=== PATIENT | male | born 1945 | race African-American/Black ===

== ENCOUNTER → 2019-10-14 | Outpatient (CLI) | payer OTHER ==
--- NOTE | 2019-10-14 11:16 | RADIOLOGY REPORT (SQ) ---
EXAM DESCRIPTION: CHRIS SWALLOW COMPLETED DATE/TIME: 10/14/2019 8:38 am REASON FOR STUDY: DYSPHAGIA (R13.10) R13.10 DYSPHAGIA, UNSPECIFIED COMPARISON: None. TECHNIQUE: Videofluoroscopic swallowing examination was performed in conjunction with speech patholo gy. Videofluoroscopic imaging was obtained and reviewed and these are the findings: RADIATION DOSE: Fluoro time 1.58 minutes 2 images saved to PACS. LIMITATIONS: None FINDINGS: The patient was brought into the fluoro room and placed upright on a modified barium swall ow chair. The patient was then given multiple consistencies mixed with barium to swallow under live fluoroscopic video guidance. According to the Speech Pathologist there was no penetration or aspirat ion. Please refer to the speech pathology report for further details. IMPRESSION: NO EVIDENCE OF PENETRATION OR ASPIRATION. PLEASE SEE SPEECH PATHOLOGIST REPORT FOR OTHER FINDINGS AND RECOMMENDATIONS. COMMENT: None Quality ID [id number]: Final reports for procedures using fluoroscopy that document radiation exposure landen rylee, or exposure time and number of fluorographic images (if radiation exposure indices are not avail able) TECHNICAL DOCUMENTATION: JOB ID: [id number] [employer]- All Rights Reserved Reading location - IP/workstation name: [id number]
--- NOTE | 2019-10-14 16:54 | ST Modified Barium Swallow ---
Recommendation - Recommendations Recommendations: Recommend being cautious with dry or crumbly textures. May wish to refer to GI due to nature of symptoms. Patient reported sensation of bolus still being in throat when fluoro indicated no material remained. Medical Diagnoses - Medical Diagnoses Medical Diagnosis Description & ICD-10 Code(s): R13.10 dysphagia Other Medical Diagnoses/Co-Morbidities: per patient report: cervical spine fusion over 5 years ago, dry mouth, "lung problems" ST Modified Barium Swallow - General Date: 10/14/19 Referring Physician: Dr. Morelos Risks/Precautions: None Date of Onset: 10/01/17 - approximate onset Reason for Referral: "2+ years of dysphagia, especially with solids" - History History obtained from: Patient -: Medical - per patient report: Patient notes swallowing problems for approximately 2 years, reports it has been stable for that time, not necessarily worsening. States that foods "get stuck", specifically reports rice giving him difficulty. Patient reports no diet changes, but states that he has to "take my time" when eating. Medications: per patient report: bupropion, amlodipine, buspirone, sildenafil citrate Allergies: none reported - Functional Status Prior Functional Status: INDEPENDENT: feeding - difficulties for 2 years, no known cause Current Functional Limitations: feeding - Subjective Patient/caregiver goal(s): better swallow Cognitive-Linguistic Function: WNL Speech Intelligibility: WNL Current Nutritional Means: PO Current PO diet: Regular Current symptoms: c/o Globus sensation Pain: Patient reports, 0/5 - Objective Assessment: Upright, Left Lateral - Food Trials Used Food trials used: Thin liquids, Pureed, Regular The patient: Was Able to Self Feed - Oral-Motor Skills Dentition: Partial Velo-pharyngeal function: Unremarkable - Assessment Oral prep: Normal Labial closure: Adequate Leakage: None Mastication: Adequate Lingual Movement: Normal Oral stage: Normal for this Procedure - Pharyngeal Stage Initiation of Pharyngeal Stage Reflex: Normal Decreased laryngeal elevation: No Reduced Velopharyngeal Closure: no Reduced pressure generation: Yes reduced tongue-based retraction: No Pre-swallow pooling in valleculae: None Pre-Swallow pooling in pyriforms: None Reduced Thyro-Hyoid approximation: No Reduced epiglottic excursion: No Reduced pharyngeal peristalsis/contraction: No Multiple Swallows with: Cleared w/ Dry Swallow Post-swallow residulas vallecular: Mild Post-Swallow residuals in pyriforms: None Post-Swallow Residuals: Posterior pharyngeal wall, tongue-base - Fall Risk Assessment Medications/Conditions that increase fall risks include: Antidepressants, sedatives, anti-arrhythmic, diuretic, benzodiazipenes, neuroleptics. BP regulation problems, cardiac problems, balance or gait deficits, neurological problems. Is patient considered at risk for falls: no Fall Risk Actions Taken: No action needed - Behavioral Observations During evaluation process patient: was cooperative, able to answer questions, provided medical history - Treatment / Educational Needs: Treatment/Education Needs: Treatment consisted of patient education on the role of the Speech Pathologist. Patient's plan of care and golas were communicated as well as scheduling and attendance policies. Recommendations for initial home program were shared. Patient demonstrated understanding and verbalized agreement. - Impression/Summary Laryngeal Penetration: No Tracheal Aspiration: no Compesatory strategies: liquid wash Patient presents with: Pharyngeal stage dysph. - mild Risk of Aspiration: Minimal Evaluation and Findings: No dysfunction of musculature seen in pharyngeal cavity. Residue was noted on base of tongue and on upper posterior pharyngeal wall. Residue easily cleared with second swallow or with liquid wash. Residue may be due to dry mouth complaints. It was also noted that after bolus had cleared pharyngeal cavity, patient still felt that material was present. - Recommendations Solid diet recommendations: Regular - may wish to avoid crumbly or dry textures Liquid Diet Modification: Thin Dysphagia therapy with ENVIRONMENTAL PROGRAM MANAGER: no Reflux Precautions: Taught to Patient Recommended techniques: Fully Upright During Meal, Small Bites and Sips, Alternate Bites/Sips Supervision: Independent Information, Precautions and Recommendations: Patient (Written), Patient (Verbal) - Plan of Care Strategies to optimize patient understanding include:: ongoing assessment of educational needs, implementation of educational strategies, and re-education. - - -: Thank you for the opportunity to work with this patient and his/her family. Should you have any questions about this patient's plan or progress, I can be reached at [phone].
== END ==
LOC: RAD 07:44
PROVIDERS: ATTEND Otolaryngology
DX: R13.10 Dysphagia, unspecified (principal)
CPT/HCPCS: 74230